=== PATIENT | female | born 1985 | race African-American/Black ===

== ENCOUNTER 2019-03-16 18:35 | Emergency (ER) | payer MEDICAID, SELFPAY ==
[2019-03-16 18:31] VITALS: BP 140/96; PULSE 111; RESP 20; TEMP 37.1; O2SAT 100; BMI 33.1
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
--- NOTE | 2019-03-16 19:27 | ED.DCSUM_ITS ---
- ER Visit Summary Date of Service: 03/16/19 Chief Complaint: Depressed and suicidal History of Present Illness: The patient is a 33 F depression. May or may not be diabetic. Patient states she currently has no primary care physician. Has been seen in the past by the [facility]. She says today she was depressed and felt like she was suicidal and possibly may harm others. She denies recently being in a psychiatric facility. She denies any attempt. Physical Examination: Young female no acute distress vital signs are stable afebrile. Currently she is calm. She is not violent or verbally abusive. She is cooperative and answering questions and following commands. H EENT exam unremarkable. No smell of alcohol. Neck nontender no lymphadenopathy no trauma. Lungs are clear to auscultation bilaterally. Heart regular rhythm no murmur. Abdomen is soft and nontender. Normal bowel sounds no peritoneal signs. Patient is moving all 4 extremities. Neurovascularly intact. Equal symmetrical sccm administrator strength. Dorsi plantarflexion intact. No signs of trauma to her arms or legs. Back nontender. Neurologically she is awake and alert with no focal motor deficits. Test Results: CBC normal white count of 9. Hemoglobin 12. Chemistries normal except glucose elevated 411 normal gap of 12. Normal BUN creatinine. Serum test negative. Tox screen negative. Alcohol negative. Emergency Department Course and Treatment: Patient depressed and possibly suicidal. Will go through a ED mental health evaluation. She will also be seen by her social security specialist. Treatment Plan: Due to her elevated blood sugar she will be given her normal dose of Lantus and had her sugar rechecked. sawmill or timber yard worker is working to disposition the patient to a psychiatric facility. Disposition: Transfer to a psychiatric facility. Impression: Acute on chronic depression Suicidal Norwegian History of bipolar disorder Hyperglycemia with a history of diabetes This note was generated with Asteres dictation software. It may contain incorrect words, spelling, and punctuation that were not noted in review of the chart prior to signing ED Disposition - Plan for ED Patient: Referrals: NOT,DEFINED [NON-STAFF] -
[2019-03-16 19:31] VITALS: RESP 16
--- NOTE | 2019-03-16 19:52 | ED.RN ---
PATIENT HAS LEGAL GUARDIAN [facility] [phone]
[2019-03-16 20:00] VITALS: RESP 16
[2019-03-16 20:16] LABS: Amphetamine Urine VISTA NEGATIVE (<1000 ng/mL); Barbiturate Urine VISTA NEGATIVE (< 200 ng/mL); Benzodiazepine Urine VISTA NEGATIVE (< 200 ng/mL); Cocaine Urine VISTA NEGATIVE (< 300 ng/mL); Ecstacy Urine VISTA NEGATIVE (< 500 ng/mL); Methadone Urine VISTA NEGATIVE (< 300 ng/mL); PCP Urine VISTA NEGATIVE (< 25 ng/mL); THC Urine VISTA NEGATIVE (< 50 ng/mL); Vista UDS pH Range 6
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
[2019-03-16 20:28] LABS: Absolute Lymphocyte Count 2.23 X10^3/uL (0.83-4.51); Absolute Neutrophil Count 5.6 X10^3/uL (2.0-7.7); Basophil# 0.05 X10^3/uL; Basophil% 0.6 % (0-1); Eosinophil# 0.32 X10^3/uL; Eosinophils% 3.5 % (0-5); Hematocrit 37.6 % (37-47); Hemoglobin 12.9 g/dL (12.0-15.0); Lymphocyte # 2.23 X10^3/ul (4.0); Lymphocyte % 24.7 % (19-41); Mean Corp Hgb Conc 34.3 g/dL (32-36); Mean Corpuscular Hgb 30.4 pg (27.0-32.0); Mean Corpuscular Volume 88.5 fL (81-99); Monocyte# 0.66 X10^3/uL; Monocyte% 7.3 % (0-10); NRBC Flagged by Analyzer 0.8 % (0-5); Neutrophil # 5.58 X10^3/uL (2.7-7.7); Neutrophil % 61.7 % (47-70); Platelet Count 236 K/mm3 (150-450); RBC Distribution Width CV 13.3 % (11.6-14.6); RBC Distribution Width SD 42.7 fl (35.1-43.9); Red Blood Count 4.25 M/mm3 (4.2-5.4)
[2019-03-16 20:48] LABS: Internal QC Validated? YES +Cl - CLEAR BKGD; Pregnancy, Serum, hCG Quali. NEGATIVE Negative
[2019-03-16 20:50] LABS: Alcohol, Blood (Medical)-Serum < 3.0 mg/dL
[2019-03-16 21:00] VITALS: RESP 16
[2019-03-16 21:04] LABS: Anion Gap 12 (5-15); BUN 11 mg/dL (7-18); Calcium,Total 9.6 mg/dL (8.5-10.1); Chloride 106 mmol/L (98-107); EST Glomerular Filtration Rate 67 mL/min (>60); Est Glom Filt Rate - Afr Amer 81 mL/min (>60); Estimated Creatinine Clearance 59.25 ml/min; Glucose 411 mg/dL (74-106); Potassium 4.2 mmol/L (3.5-5.1); Sodium Level 137 mmol/L (136-145)
--- NOTE | 2019-03-16 21:32 | CM.ED ---
Social Work Referral faxed to [facility], pending approval. Ebenezer Valenzuela B2B APPOINTMENT SETTER, CARE PROVIDER
[2019-03-16 22:02] VITALS: RESP 18
--- NOTE | 2019-03-16 22:13 | CM.ED ---
Social Work Telephone call from [facility], they are not able to accept due to patient having no psych days with Medicare A. Telephone call to [facility], intake. Referral made. They are reporting to be able to accept Medicaid if unable to accept Medicare A. Referral faxed. Pending approval. [facility] to call ED charge nurse with outcome of referral due to end of social work day. Medical team updated on plan. Ebenezer OLIVER, ELPIDIO
[2019-03-16 22:31] LABS: Bedside Glucose 456 mg/dL (70-110)
[2019-03-16 23:23] VITALS: BP 139/94; PULSE 100; RESP 16; O2SAT 100
[2019-03-17] VITALS (12 sets, daily range): BP systolic 135–178; BP diastolic 79–97; PULSE 81–105; RESP 14–18; TEMP 36.6; O2SAT 97–100
--- NOTE | 2019-03-17 00:24 | ED.RN ---
PT STANDING AT THE SINK DRINKING CUP AFTER CUP OF WATER. PT DRANK 5 CUPS OF WATER IN A ROW. PT INSTRUCTED TO LAY DOWN IN BED AND ATTEMPT TO GET SOME SLEEP. SITTER IN THE ROOM.
--- NOTE | 2019-03-17 00:57 | ED.RN ---
PT DRINKING OUT OF THE SINK IN THE BATHROOM. PT INFORMED SHE IS NOT LONGER PERMITTED TO GET UP TO THE BATHROOM.
[2019-03-17] MEDS: LORazepam 1 MG Tablet PO (03:21)
--- NOTE | 2019-03-17 07:56 | NURSING ---
CALLED [facility], TALKED TO JAIME. ASKED FOR STATUS. HE JUST CAME ON SHIFT. WILL CHECK CHART, THEN CALL US BACK.
[2019-03-17] MEDS: amLODIPine 10 MG Tablet PO (09:22)
[2019-03-17] MEDS: Lithium Carbonate 300mg Capsule 600 MG PO ×2 (09:22→23:12)
[2019-03-17] MEDS: Levothyroxine 125 MCG Tablet PO (09:22)
[2019-03-17] MEDS: metFORMIN HCl 850 MG Tablet PO ×2 (09:22→23:13)
--- NOTE | 2019-03-17 09:33 | NURSING ---
CALLED [facility], TALKED TO BRITTANIE. HE CAN'T FIND ANYTHING ABOUT PATIENT. WILL FAX CHART TO THEM, THEY HAVE BEDS.
--- NOTE | 2019-03-17 09:45 | NURSING ---
FAXED CHART TO [facility]
--- NOTE | 2019-03-17 13:21 | NURSING ---
CALLED [facility], TALKED TO BRITTANIE. HIS CO WORKER, BEULAH, IS WORKING ON PATIENT. HE WILL CHECK ON STATUS AND CALL BACK.
--- NOTE | 2019-03-17 13:37 | ED.RN ---
pt declined by [facility] due to not having any psych days
--- NOTE | 2019-03-17 13:38 | NURSING ---
PATIENT DECLINED AT [facility] CALLED CRISIS
[2019-03-17 13:41] LABS: Bedside Glucose > 500 mg/dL (70-110)
--- NOTE | 2019-03-17 13:41 | ED.RN ---
pt blood sugar 547 dr mckinnon
[2019-03-17] MEDS: Insulin Lispro 100 UNIT/ML INSULN.PEN 15 UNIT SC (14:20)
--- NOTE | 2019-03-17 14:25 | NURSING ---
BONILLA, CRISIS, HERE
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
[2019-03-17 15:26] LABS: Bedside Glucose 417 mg/dL (70-110)
[2019-03-17 17:10] LABS: Bedside Glucose 229 mg/dL (70-110)
--- NOTE | 2019-03-17 17:44 | ED.RN ---
PT PENDING AT [facility] AND [facility]
--- NOTE | 2019-03-17 17:45 | ED.RN ---
LACEY FROM CRISES REMAINS UNABLE TO CONTACT PT GUARDIAN
--- NOTE | 2019-03-17 17:47 | ED.RN ---
PT BECAME SLIGHTLY AGGRESSIVE WITH STAFF REGARDING DINNER. REMINDED THAT THIS TYPE OF BEHAVIOR WILL NOT BE TOLERATED
--- NOTE | 2019-03-17 22:24 | ED.RN ---
patient has been denied at [facility]. Crisis is aware. Crisis is attempted to contact guardian and determine which county patient belongs too for approval of more mental health days.
[2019-03-17 22:26] LABS: Bedside Glucose 314 mg/dL (70-110)
[2019-03-17] MEDS: Divalproex Sodium 250 MG Tablet 2000 MG PO (23:13)
[2019-03-18] VITALS (20 sets, daily range): BP systolic 139–172; BP diastolic 74–112; PULSE 67–111; RESP 14–18; O2SAT 96–100
--- NOTE | 2019-03-18 08:55 | ED.RN ---
CALLED [facility] TO GET AN UPDATE. THEY ARE WAITING ON THE GUARDIAN TO GET BACK WITH THEM.
[2019-03-18] MEDS: metFORMIN HCl 850 MG Tablet PO ×2 (10:10→21:17)
[2019-03-18] MEDS: amLODIPine 10 MG Tablet PO (10:10)
[2019-03-18] MEDS: Lithium Carbonate 300mg Capsule 600 MG PO ×2 (10:10→21:17)
[2019-03-18] MEDS: Levothyroxine 125 MCG Tablet PO (10:10)
--- NOTE | 2019-03-18 10:24 | CM.ED ---
SOCIAL WORK CALL TO THE [facility] FOR UPDATE REGARDING CASE, SPOKE WITH MICHELLE. PER MICHELLE, CRISIS HAS ATTEMPTED TO CONTACT GUARDIAN MULTIPLE TIMES. NEEDING TO KNOW COUNTY OF RESIDENCE TO GET APPROVAL FOR PLACEMENT PATIENT IS OUT OF PSYCH DAYS. WILL UPDATE THIS WORKER WITH ANY NEW INFORMATION ONCE RECEIVED. STAFF UPDATED. BENITO SOTO, ENGLISH COMPOSITION TEACHER.
--- NOTE | 2019-03-18 11:30 | CM.ED ---
SOCIAL WORK RECEIVED CALL BACK FROM MICHELLE. PER MICHELLE, STILL ATTEMPTING TO CONTACT GUARDIAN. MICHELLE AYERS PASSED ON PREVIOUS ADDRESS LISTED HAS SENT PATIENT'S INFORMATION TO [facility]. WILL CONTINUE TO UPDATE THIS WORKER. CALL TO PATIENT'S GUARDIAN, SOHA WAHL . PER SOHA, WAS IN A DOCTOR'S APPOINTMENT AND WILL BE AVAILABLE FOR CRISIS TO SPEAK WITH HIM TO OBTAIN INFORMATION. [facility] SHOULD HAVE ALL OF PATIENT'S INFORMATION FROM PREVIOUS RESIDENCE. DATABASE PROGRAMMER'S MARCOS BENITEZ. Fam VERDUGO, BUN PANNER, FUSE SPOOLER.
[2019-03-18 12:01] LABS: Bedside Glucose 471 mg/dL (70-110)
[2019-03-18] MEDS: Insulin Lispro 100 UNIT/ML INSULN.PEN 15 UNIT SC (12:05)
[2019-03-18 13:01] LABS: Bedside Glucose 382 mg/dL (70-110)
[2019-03-18 13:40] LABS: Bedside Glucose 309 mg/dL (70-110)
--- NOTE | 2019-03-18 14:20 | CM.ED ---
SOCIAL WORK UPDATED BY CRISIS, REFERRAL HAS BEEN FAXED TO [facility].
--- NOTE | 2019-03-18 15:09 | EKG12_ITS ---
Test Reason : MEDICAL CLEARANCE Blood Pressure : / mmHG Vent. Rate : 117 BPM Atrial Rate : 117 BPM P-R Int : 150 ms QRS Dur : 078 ms QT Int : 322 ms P-R-T Axes : 046 -02 045 degrees QTc Int : 449 ms Sinus tachycardia Minimal voltage criteria for LVH, may be normal variant Cannot rule out Anterior infarct , age undetermined Abnormal ECG Confirmed by HOLLAND GALLEGOS, LANI ([id number]), non linear editor MAKAYLA GONZALEZ ([id number]) on 03/25/2019 11:48:18 AM Referred By: ELAINE Confirmed By:LANI LINO MD
[2019-03-18] MEDS: Ziprasidone HCl 20 MG Capsule PO ×2 (15:57→21:17)
--- NOTE | 2019-03-18 16:08 | ED.RN ---
PT STUCK HER HANDS INTO THE URINE IN THE BEDSIDE COMMODE. PT INSTRUCTED TO WASH HER HANDS AND BSC WAS EMPTIED AND CLEANED.
[2019-03-18 16:15] LABS: AST(SGOT) 18 U/L (15-37); Alanine Aminotransfer ALT/SGPT 36 U/L (13-56); Alkaline Phosphatase 99 U/L (45-117); Bilirubin, Direct 0.08 mg/dL (0.00-0.30); Globulin 3.9 g/dL (2.2-4.2); Protein, Total 7.9 g/dL (6.4-8.2)
[2019-03-18 16:16] LABS: Valproic Acid (Depakene) Level 38 ug/mL (50-100)
[2019-03-18 17:30] LABS: Bedside Glucose 209 mg/dL (70-110)
--- NOTE | 2019-03-18 20:25 | ED.RN ---
SPOKE WITH FINA WE ARE WAITING ON PT LITHIUM LEVEL, IF PT IS ACCEPTED, PT WOULD BE 11 ON OUR LIST
[2019-03-18 21:05] LABS: Bedside Glucose > 500 mg/dL (70-110)
[2019-03-18] MEDS: Divalproex Sodium 250 MG Tablet 2000 MG PO (21:17)
[2019-03-19] VITALS (13 sets, daily range): BP systolic 134–152; BP diastolic 62–109; PULSE 62–125; RESP 14–18; TEMP 36.9; O2SAT 97–100
[2019-03-19 00:26] LABS: Bedside Glucose 320 mg/dL (70-110)
--- NOTE | 2019-03-19 06:26 | ED.RN ---
JOANNE WITH [facility] PATIENT STILL 11TH ON LIST, THERE ARE NO SCHEDULED DISCHARGES TODAY
--- NOTE | 2019-03-19 06:49 | ED.RN ---
PER JASS WITH CRISIS PT IS ACCEPTED TO [facility] BUT NOT SURE OF WHEN A BED WILL BE OPEN, CRISIS WILL CALL THEM BACK THIS AFTERNOON.
[2019-03-19] MEDS: Haloperidol Lactate 5 MG/ML Vial IV (09:26)
--- NOTE | 2019-03-19 09:43 | CM.ED ---
Social Work Spoke with Dr. Lindsay who is inquiring on update with patient's placement at [facility]. Call to crisis and spoke with Kassie. Kassie plans to call [facility] around 1100 as this is typically the timeframe that [facility] does discharges for the day. Anticipate an update around this time as to where patient is at on the list for bed availability at [facility]. Plan: Patient to [facility] when bed becomes available. Will update ED staff as new information become available to this video game script writer. -YONIS Nieves, FAMILY PARTNER
[2019-03-19] MEDS: Lithium Carbonate 300mg Capsule 600 MG PO ×2 (12:08→21:29)
[2019-03-19] MEDS: amLODIPine 10 MG Tablet PO (12:08)
[2019-03-19] MEDS: Levothyroxine 125 MCG Tablet PO (12:08)
[2019-03-19] MEDS: metFORMIN HCl 850 MG Tablet PO ×2 (12:08→21:29)
[2019-03-19] MEDS: Ziprasidone IM 20 MG/ML VIAL IM ×2 (13:31→18:50)
--- NOTE | 2019-03-19 15:19 | CM.ED ---
Social Work No call back from the [facility] with update. Called [facility] again. Message left for Cristina requesting a call back with update on bed availability/patient's status for transfer to [facility]. -YONIS Nieves, PUNCH HAND
[2019-03-19 16:21] LABS: Bedside Glucose 436 mg/dL (70-110)
[2019-03-19] MEDS: Insulin Lispro 100 UNIT/ML INSULN.PEN 15 UNIT SC ×2 (17:14→18:59)
--- NOTE | 2019-03-19 17:24 | ED.RN ---
PER KHANH WITH CRISIS; THEY ARE KEEPING HER ON THE WAIT LIST FOR [facility] BUT ALSO MADE A REFERRAL TO [facility]
[2019-03-19] MEDS: LORazepam 2 MG/ML Syringe IM (18:50)
[2019-03-19 19:21] LABS: Bedside Glucose 341 mg/dL (70-110)
[2019-03-20] VITALS (22 sets, daily range): BP systolic 140–158; BP diastolic 74–105; PULSE 88–110; RESP 16–20; TEMP 36.7–37.2; O2SAT 97–99
--- NOTE | 2019-03-20 02:19 | ED.RN ---
Checked blood glucose, 60. PT was given 6 oz of orange juice. She was standing at the sink drinking when she completely emptied her bladder onto the floor. Otter was placed on floor and with the assist of 1, pt was walked to [facility] for further toileting. Will recheck sugar at 0230. Sitter at bedside. Suicide precautions.
[2019-03-20 02:36] LABS: Bedside Glucose 150 mg/dL (70-110)
--- NOTE | 2019-03-20 02:43 | ED.RN ---
Called pharmacy to ask for depakote.
[2019-03-20] MEDS: Divalproex Sodium 250 MG Tablet 2000 MG PO ×2 (02:58→21:45)
--- NOTE | 2019-03-20 05:34 | ED.RN ---
pt has wrapped her bed sheet around herself in a kimono and wrapped a blanket around her hair in a turbin. Talking to herself.
[2019-03-20 07:10] LABS: Bedside Glucose 42 mg/dL (70-110)
[2019-03-20 07:10] LABS: Bedside Glucose 60 mg/dL (70-110)
[2019-03-20 08:30] LABS: Bedside Glucose 387 mg/dL (70-110)
[2019-03-20] MEDS: Ziprasidone IM 20 MG/ML VIAL IM ×3 (09:06→21:22)
[2019-03-20] MEDS: Insulin Lispro 100 UNIT/ML INSULN.PEN 14 UNIT SC (09:06)
--- NOTE | 2019-03-20 09:10 | NURSING ---
CALLED CRISIS, TALKED TO JASS.
--- NOTE | 2019-03-20 09:57 | NURSING ---
JASS, CRISIS, HERE TO SEE PATIENT
[2019-03-20] MEDS: Lithium Carbonate 300mg Capsule 600 MG PO ×2 (10:20→21:20)
[2019-03-20] MEDS: Levothyroxine 125 MCG Tablet PO (10:20)
[2019-03-20] MEDS: amLODIPine 10 MG Tablet PO (10:20)
[2019-03-20] MEDS: metFORMIN HCl 850 MG Tablet PO ×2 (10:20→21:20)
[2019-03-20 10:21] LABS: Bedside Glucose 499 mg/dL (70-110)
--- NOTE | 2019-03-20 17:36 | NURSING ---
CALLED [facility], TALKED TO SHANA. SHE HAS 1 FEMALE AHEAD OF HER
[2019-03-20 18:05] LABS: Bedside Glucose 392 mg/dL (70-110)
[2019-03-20] MEDS: DiphenhydrAMINE 25 MG Capsule 50 MG PO (21:20)
[2019-03-20 21:30] LABS: Bedside Glucose 405 mg/dL (70-110)
[2019-03-21] VITALS (17 sets, daily range): BP systolic 140–156; BP diastolic 86–114; PULSE 81–119; RESP 12–22; TEMP 36.7; O2SAT 97–100
[2019-03-21] MEDS: LORazepam 2 MG/ML Syringe IM (04:51)
[2019-03-21] MEDS: DiphenhydrAMINE 50 MG/ML Syringe IM (04:51)
[2019-03-21] MEDS: Haloperidol Lactate 5 MG/ML Vial 10 MG IM (04:51)
--- NOTE | 2019-03-21 04:53 | ED.RN ---
PT escalating. Using words such as niggar and bitch with a loud voice. Not redirectable. PT requesting medications, food and her clothes. Told PT I could get her medication but it's too early for breakfast. Two IM given in buttocks, pt always compliant to get injections. Sitter remains at bedside, redirecting as needed. PT only allowed water and continue with bedside commode.
--- NOTE | 2019-03-21 08:40 | NURSING ---
CALLED [facility]. SHE IS NOW NUMBER 8.
[2019-03-21 09:20] LABS: Bedside Glucose 448 mg/dL (70-110)
[2019-03-21] MEDS: metFORMIN HCl 850 MG Tablet PO (09:44)
[2019-03-21] MEDS: Levothyroxine 125 MCG Tablet PO ×2 (09:44→09:46)
[2019-03-21] MEDS: Insulin Lispro 100 UNIT/ML INSULN.PEN 15 UNIT SC (09:44)
[2019-03-21] MEDS: Lithium Carbonate 300mg Capsule 600 MG PO (09:45)
[2019-03-21] MEDS: amLODIPine 10 MG Tablet PO (09:45)
--- NOTE | 2019-03-21 09:57 | NURSING ---
MICHELLE, CRISIS, CALLED. SHE IS UP TO DATE WITH THE INFO WE HAVE.
--- NOTE | 2019-03-21 10:25 | CM.ED ---
SOCIAL WORK UPDATED [facility] WITH THE MENTAL HEALTH AND RECOVERY BOARD ON PATIENT'S STATUS AND [facility]'S REPORT THAT SHE IS NOW NUMBER 8 ON LIST. Fam VERDUGO MSW, PROFESSIONAL NURSE.
--- NOTE | 2019-03-21 10:46 | ED.RN ---
PER CHARGE NURSE, PT ESCORTED TO 218 FOR SHOWER BY IT SECURITY ADMINISTRATOR, SITTER/IT SECURITY ADMINISTRATOR, SECURITY. NEW BEDDING AND ROOM STRAIGHTENED UP WHILE PT SHOWERING.
--- NOTE | 2019-03-21 11:33 | CM.ED ---
SOCIAL WORK UPDATE FROM [facility] WITH MENTAL HEALTH AND RECOVERY BOARD. PER [facility], SPOKE WITH [facility] AND PATIENT IS NOW 4TH ON WAIT LIST. Fam VERDUGO, SITE ACQUISITION SPECIALIST, WIRE COATER.
[2019-03-21 12:15] LABS: Bedside Glucose 280 mg/dL (70-110)
[2019-03-21 15:40] LABS: Bedside Glucose 391 mg/dL (70-110)
[2019-03-21 15:40] LABS: Bedside Glucose 309 mg/dL (70-110)
[2019-03-21 17:11] LABS: Bedside Glucose 196 mg/dL (70-110)
--- NOTE | 2019-03-21 18:05 | NURSING ---
[facility] called to give update on admission status. Caller stated that pt is next on list and should be ready tonight or early tomorrow morning and a new pink slip needs sent over because their current one is . New signed pink slipped faxed to [facility] @ [phone].
[2019-03-21 21:45] LABS: Bedside Glucose 373 mg/dL (70-110)
== END 2019-03-21 21:48 ==
PROVIDERS: Emergency Medicine; Emergency Provider Emergency Medicine
DX: F31.9 Bipolar disorder, unspecified (principal); R45.851 Suicidal ideations; E11.65 Type 2 diabetes mellitus with hyperglycemia; Z72.0 Tobacco use
CPT/HCPCS: 36415; 80048; 80076; 80164; 80178; 80307; 80320; 82962; 84703; 85025; 93005; 96372; 96374; 99285; G0480; J3486